=== PATIENT | male | born 1975 | race Caucasian/White ===

== ENCOUNTER 2017-07-09 13:06 | Emergency (ER) | payer MEDICAID, OTHER ==
[2017-07-09 13:14] VITALS: BP 175/100; PULSE 77; RESP 16; TEMP 98.5
[2017-07-09] MEDS ORDERED: Dexamethasone 4 mg/1 ml IM STA (13:50)
--- NOTE | 2017-07-09 13:50 | C.PDOC ---
History Of Present Illness 42 year old male presents to the ER with a complaint of right lower back pain radiating down the right leg for the past 1 month. Patient states he does a lot of heavy lifting at work which has been exacerbating the pain. Denies bowel/ bladder incontinence, weakness or numbness. Time Seen by Provider: 07/09/17 13:22 Chief Complaint (Nursing): Lower Extremity Problem/Injury History Per: Family History/Exam Limitations: no limitations Onset/Duration Of Symptoms: Days Current Symptoms Are (Timing): Still Present Past Medical History Reviewed: Historical Data, Nursing Documentation, Vital Signs Vital Signs: Last Vital Signs Temp 98.5 F 07/09/17 13:11 Pulse 77 07/09/17 13:11 Resp 16 07/09/17 13:11 BP 175/100 H 07/09/17 13:11 Pulse Ox 94 L 07/09/17 21:46 - Medical History PMH: Arthritis Family History: States: Unknown Family Hx - Social History Hx Alcohol Use: No Hx Substance Use: No Review Of Systems Except As Marked, All Systems Reviewed And Found Negative. Musculoskeletal: Positive for: Back Pain Neurological: Negative for: Weakness, Numbness Physical Exam - Physical Exam Appears: Non-toxic, No Acute Distress Skin: Warm, Dry, No Rash Head: Atraumatic, Normacephalic Eye(s): bilateral: Normal Inspection Oral Mucosa: Moist Neck: Normal ROM, No Midline Cervical Tenderness, No Paracervical Tenderness, Supple Chest: Symmetrical, No Tenderness Cardiovascular: Rhythm Regular, No Friction Rub, No Murmur Respiratory: Normal Breath Sounds, No Rales, No Rhonchi, No Wheezing Gastrointestinal/Abdominal: Soft, No Tenderness Back: No Vertebral Tenderness, Paraspinal Tenderness (Right lumbar) Extremity: Normal ROM (x4), No Swelling Neurological/Psych: Oriented x3, Normal Speech, Normal Motor, Normal Sensation Gait: Steady ED Course And Treatment O2 Sat by Pulse Oximetry: 95 (Room air) Pulse Ox Interpretation: Normal Medical Decision Making Medical Decision Making: Decadron, toradol, and flexeril administered. On reevaluation, patient reports improvement of pain, he is ambulatory in the ER in no acute distress. Will discharge home with instructions to follow up with PMD. Disposition - Disposition Referrals: [facility] [Outside] Chad Nguyen MD [Non-Staff] - Waldo Connors MD [Staff Provider] - Disposition: HOME/ ROUTINE Disposition Time: 14:27 Condition: GOOD Additional Instructions: Follow up with the medical doctor within 1-2 days without fail, Return if worsened. Prescriptions: Cyclobenzaprine [Cyclobenzaprine HCl] 10 mg PO BID #14 tab Lidocaine 5% [Lidoderm] 1 patch TOP DAILY #10 patch Naproxen [Naprosyn] 500 mg PO BID #20 tab Instructions: Herniated Disc, Radiculopathy (DC) Forms: [employer] (Swedish) - Clinical Impression Clinical Impression: Lumbar radiculopathy - PA / INFORMATION SYSTEMS COORDINATOR / Resident Statement MD/DO has reviewed & agrees with the documentation as recorded. - Scribe Statement The provider has reviewed the documentation as recorded by the Scribandrews Cox All medical record entries made by the Ashuibandrews were at my direction and personally dictated by me. I have reviewed the chart and agree that the record accurately reflects my personal performance of the history, physical exam, medical decision making, and the department course for this patient. I have also personally directed, reviewed, and agree with the discharge instructions and disposition.
[2017-07-09 22:39] VITALS: O2SAT 95
== END 2017-07-09 14:57 | disposition home or self-care (01) ==
LOC: C.ER 13:06
DX: M54.16 Radiculopathy, lumbar region (principal)
CPT/HCPCS: 96372; 99283; J1100; J1885